=== PATIENT | female | born 1975 | race Caucasian/White ===

== ENCOUNTER 2017-01-30 02:30 | Emergency (ER) | payer MEDICAID ==
[~2017-01-30] VITALS: Ht 152.4 cm; Wt 65.0 kg
[2017-01-30 02:43] VITALS: Ht 152.4 cm; Wt 65.0 kg
[2017-01-30 03:28] LABS: BASOPHILS % 0.5 % (0.0-2.0); EOSINOPHILS # 0.2 10^3/ul (0.0-0.5); EOSINOPHILS % 1.9 % (0.0-7.0); HEMATOCRIT 38.6 % (37.0-47.0); HEMOGLOBIN 13.4 g/dl (12.0-16.0); LYMPHOCYTES # 1.8 10^3/ul (0.8-2.9); LYMPHOCYTES % 22.3 % (15.0-51.0); MEAN CORPUSCULAR HEMOGLOBIN 30.5 pg (29.0-33.0); MEAN CORPUSCULAR HGB CONC 34.7 g/dl (32.0-37.0); MEAN CORPUSCULAR VOLUME 87.7 fl (82.0-101.0); MONOCYTE # 0.5 10^3/ul (0.3-0.9); MONOCYTES % 6.6 % (0.0-11.0); NEUTROPHIL # 5.6 10^3/ul (1.6-7.5); NEUTROPHILS % 68.5 % (39.0-77.0); PLATELET COUNT 255 10^3/UL (140-415); RED CELL DISTRIBUTION WIDTH 12.4 % (11.5-14.5); WHITE BLOOD COUNT 8.2 10^3/ul (4.8-10.8)
--- NOTE | 2017-01-30 03:39 | RADRPT ---
PROCEDURE: CHEST - 1 VIEW CLINICAL INDICATION: 41-year-old female with chest pain. TECHNIQUE: A single frontal AP portable view of the chest was performed. The images were reviewed on a PACS workstation. COMPARISON: None. FINDINGS: The cardiomediastinal silhouette has a normal appearance. There is no evidence for an infiltrate. There is no evidence for congestive heart failure. There is no evidence for pneumothorax. The osseou s structures are intact. IMPRESSION: No evidence for active cardiopulmonary disease. .Luis Vargas MD, MD Date Time Electronically viewed and signed by .Luis Vargas MD, on 01/30/2017 03:39 .M/
[2017-01-30 03:47] LABS: ANION GAP 15 (8-16); BLOOD UREA NITROGEN 14 mg/dl (7-20); CARBON DIOXIDE 22 mmol/L (21-31); CHLORIDE 107 mmol/L (97-110); CREATININE 0.59 mg/dl (0.44-1.00); GLUCOSE 110 mg/dl (70-220); SODIUM 140 mmol/L (135-144)
[2017-01-30 04:01] LABS: TROPONIN-I < 0.012 ng/ml (0.00-0.12)
[2017-01-30] MEDS ORDERED: LOPE2CAP PO (04:23)
[2017-01-30] MEDS ORDERED: LORA-441 PO (04:24)
[2017-01-30 05:05] VITALS: BP 129/84; PULSE 87; RESP 18; TEMP 99
--- NOTE | 2017-01-30 05:10 | ERD ---
ER Documentation Chief Complaint Date/Time DATE: 01/30/17 TIME: 05:07 Chief Complaint bib self, cc: anxious since yesterday, and had diarrhea x 3, HPI This is a 41-year-old female presents to the ER with multiple complaints. Patient states that yesterday around 1:30 PM she began to experience palpitations that have been intermittent. Around 3:30 PM patient had 3 episodes of nonbloody, watery diarrhea. Patient however denies any abdominal pain. She does admit to nausea however denies vomiting. Around 5 PM patient had an episode of chest pain which lasted about 2 minutes and went away. She denies any shortness of breath. Patient is also complaining of being fatigued. Patient has had a cough and a sinus infection over the last week. There is no history of early onset of heart attacks in her family, she does not have diabetes or hypertension and does not smoke. She states that she is constantly anxious, however does not believe this is anxiety. ROS 12 point review of systems was done, all negative except per HPI. Medications Home Meds Active Scripts Lorazepam* (Ativan*) 0.5 Mg Tablet, 0.5 MG PO Q8, #10 TAB Prov:COLTON PIERRE 01/30/17 Loperamide Hcl* (Imodium*) 2 Mg Capsule, 2 MG PO .AFTER EA LOOSE BM Y for DIARRHEA, #10 TAB Prov:COLTON PIERRE 01/30/17 Allergies Allergies: Coded Allergies: erythromycin base (Verified Allergy, Unknown, 01/30/17) PMhx/Soc Medical and Surgical Hx: pt denies Medical Hx Hx Miscellaneous Medical Probl: Yes (anxious since yesterday ) Hx Alcohol Use: No Hx Substance Use: No Hx Tobacco Use: No Smoking Status: Never smoker Physical Exam Vitals Vital Signs Date Time Temp Pulse Resp B/P Pulse Ox O2 Delivery O2 Flow Rate FiO2 01/30/17 02:43 98.9 81 19 123/81 100 Physical Exam GENERAL: The patient is well developed and appropriate for usual state of health , in no apparent distress. HEENT: Atraumatic. Conjunctivae are pink. Pupils equal, round, and reactive to light. Extraocular muscles are grossly intact. Bilateral tympanic membranes are clear with no evidence of erythema, effusion or dulling of the light reflex. The oropharynx is clear with no erythema or exudates. NECK: C-spine is soft and supple. There is no cervical lymphadenopathy. CHEST: Clear to auscultation bilaterally. There are no rales, wheezes or rhonchi. HEART: Regular rate and rhythm. No murmurs, clicks, rubs or gallops. ABDOMEN: Soft, nontender and nondistended. Good bowel sounds. No rebound or guarding. No gross peritonitis. No gross organomegaly or masses. No Villanueva sign or McBurney point tenderness. No pulsatile masses. BACK: No midline or flank tenderness. EXTREMITIES: Equal pulses bilaterally. There is no peripheral clubbing, cyanosis or edema. No focal swelling or erythema. Full range of motion. Grossly neurovascularly intact. NEURO: Alert and oriented. Cranial nerves II through XII are intact. Motor strength in all 4 extremities with 5/5 strength. Sensation grossly intact. Normal speech and gait. SKIN: There is no apparent rash or petechia. The skin is warm and dry. Result Diagram: 01/30/17 0320 01/30/17 0320 Results 24 hrs Laboratory Tests Test 01/30/17 03:20 White Blood Count 8.210^3/ul Red Blood Count 4.4010^6/ul Hemoglobin 13.4g/dl Hematocrit 38.6% Mean Corpuscular Volume 87.7fl Mean Corpuscular Hemoglobin 30.5pg Mean Corpuscular Hemoglobin Concent 34.7g/dl Red Cell Distribution Width 12.4% Platelet Count 92913^3/UL Mean Platelet Volume 10.0fl Neutrophils % 68.5% Lymphocytes % 22.3% Monocytes % 6.6% Eosinophils % 1.9% Basophils % 0.5% Nucleated Red Blood Cells % 0.0/100WBC Neutrophils # 5.610^3/ul Lymphocytes # 1.810^3/ul Monocytes # 0.510^3/ul Eosinophils # 0.210^3/ul Basophils # 0.010^3/ul Nucleated Red Blood Cells # 0.010^3/ul Sodium Level 140mmol/L Potassium Level 4.0mmol/L Chloride Level 107mmol/L Carbon Dioxide Level 22mmol/L Anion Gap 15 Blood Urea Nitrogen 14mg/dl Creatinine 0.59mg/dl Glucose Level 110mg/dl Calcium Level 9.0mg/dl Troponin I < 0.012ng/ml Thyroid Stimulating Hormone (TSH) 1.380MIU/L Procedures/MDM Differential diagnosis includes but is not limited to; STEMI, dissection, pneumothorax, PE, esophageal rupture, tamponade, pneumonia, pericarditis, GERD, musculoskeletal, endocarditis, anxiety. At this time etiology of patient's palpitations is unknown, however there is no evidence of acute cardiac etiology. EKG was taken [address] elevation no T-wave inversion this EKG was signed by Dr. Jean-Baptiste. Patient did not have any evidence of hyperthyroidism, electrolyte abnormality or infection. For pulmonary embolism is low, patient does not have any PERC criteria. May be suffering from anxiety , she will be sent home with Lorazepam. She will also be given medication for her diarrhea. At this time there is no evidence of dehydration she is able to tolerate p.o. fluids. Advised patient to see a ball machine operator, and gave her information for Dr. Vasquez. She should also follow-up with her primary care doctor within 1-2 days or return to ER sooner if symptoms worsen. My medical decision making was shared with the patient she understands and agrees with plan. Departure Diagnosis: Primary Impression: Palpitations Condition: Stable Patient Instructions: Palpitations Referrals: JASON VASQUEZ Additional Instructions: Call your primary care doctor TOMORROW for an appointment during the next 1-2 days.See the doctor sooner or return here if your condition worsens before your appointment time. COLTON PIERRE Jan 30, 2017 05:10
== END 2017-01-30 05:05 | disposition home or self-care (01) ==
LOC: FTE 02:30
DX: R00.2 Palpitations (principal)
CPT/HCPCS: 36415; 71010; 80048; 84443; 84484; 85025; 93005; Z7502

== ENCOUNTER 2018-01-05 15:09 | Emergency (ER) | END 2018-01-05 17:34 | disposition home or self-care (01) ==

== ENCOUNTER 2018-06-21 07:57 | Emergency (ER) | payer MEDICAID ==
[~2018-06-21] VITALS: Ht 167.6 cm; Wt 64.1 kg
[~2018-06-21 07:57] MED LIST: IBUP-1542 PO; LOPE2CAP PO; LORA-441 PO; TRAM50TA2 PO
[2018-06-21 08:01] VITALS: BP 127/87; PULSE 89; RESP 20; Ht 167.6 cm; Wt 64.1 kg
[2018-06-21] MEDS ORDERED: IBUPROFEN 800 MG TAB PO ONE (08:30)
[2018-06-21] MEDS ORDERED: HYDR-4011 PO (09:51)
[2018-06-21] MEDS ORDERED: NAPR-985 PO (09:51)
[2018-06-21] MEDS ORDERED: MED4DP PO (09:51)
--- NOTE | 2018-06-21 11:13 | ERD ---
ER Documentation Chief Complaint Chief Complaint Complains of right hand pain x 2 days HPI 42-year-old female presenting with pain of right hand. She denies any traumatic injuries and had some swelling noted to the dorsal aspect of her right hand. She is right-hand dominant. She also has some pain extending from her neck down her arm and describes it as a stabbing burning type pain. Took Advil last night but no medication days. Denies any fevers. Medical history denies. Allergy to erythromycin. Surgical history to the right ovary. Social history denies ROS All systems reviewed and are negative except as per history of present illness. Medications Home Meds Active Scripts Naproxen* (Naprosyn*) 500 Mg Tablet, 500 MG PO BID PRN for PAIN AND/OR INFLAMMATION, #30 TAB Prov:MYKE AGUILAR PA-C 06/21/18 Hydrocodone/Acetaminophen ([place] 5-325 Tablet) 1 Each Tablet, 1 TAB PO Q6H PRN for PAIN, #7 TAB Prov:MYKE AGUILAR PA-C 06/21/18 Methylprednisolone* (Medrol* DOSE PACK) 4 Mg/Dose-Pack Tab.ds.pk, 4 MG PO . DIRECTED, #1 PACKET Prov:MYKE AGUILAR PA-C 06/21/18 Tramadol HCl (Tramadol HCl) 50 Mg Tablet, 50 MG PO Q4 PRN for PAIN, #20 TAB Prov:COLTON PIERRE 01/05/18 Ibuprofen* (Motrin*) 600 Mg Tab, 600 MG PO Q6, #30 TAB Prov:COLTON PIERRE 01/05/18 Lorazepam* (Ativan*) 0.5 Mg Tablet, 0.5 MG PO Q8, #10 TAB Prov:COLTON PIERRE 01/30/17 Loperamide Hcl* (Imodium*) 2 Mg Capsule, 2 MG PO .AFTER EA LOOSE BM PRN for DIARRHEA, #10 TAB Prov:COLTON PIERRE 01/30/17 Allergies Allergies: Coded Allergies: erythromycin base (Verified Allergy, Unknown, 01/30/17) PMhx/Soc Hx Miscellaneous Medical Probl: Yes Hx Alcohol Use: No Hx Substance Use: No Hx Tobacco Use: No FmHx Family History: No diabetes, No coronary disease, No other Physical Exam Vitals Vital Signs Date Temp Pulse Resp B/P (MAP) Pulse Ox O2 O2 Flow FiO2 Time Delivery Rate 06/21/18 89 20 127/87 98 08:01 (100) Physical Exam GENERAL: The patient is well-appearing, well-nourished, in no acute distress CHEST: Clear to auscultation bilaterally. There are no rales, wheezes or rhonchi. HEART: Regular rate and rhythm. No murmurs, clicks, rubs or gallops. EXTREMITIES: Bruising noted to the dorsal aspect of the right hand with no obvious deformity or swelling. Able to move all digits without difficulty and strength 5 out of 5. Pulses intact. No swelling noted to the wrist. No deformity. Normal range of motion of the right upper extremity with strength 5 out of 5. NEUROLOGIC: Motor strength in all 4 extremities with 5 out of 5 strength. Sensation grossly intact. SKIN: There is no apparent rash or petechiae. The skin is warm and dry. Results 24 hrs Current Medications Medications Dose Sig/Berta Start Time Status Last (Trade) Ordered Route PRN Stop Time Admin Dose Reason Admin Ibuprofen 800 mg ONCE ONCE 06/21/18 DC 06/21/18 (Motrin) PO 08:30 08:34 06/21/18 08:31 Procedures/MDM DIAGNOSTIC IMAGING REPORT Patient: EBEN RUSSELL : 1975 Age: 42 Sex: F MR #: [id number] DOS: 06/21/18815 Ordering MD: JOHNNIE AGUILAR PA-C Location: [facility] Room/Bed: PROCEDURE: US upper extremity Venous. CLINICAL INDICATION: Right arm edema TECHNIQUE: Multiple sonographic images of the right upper extremity venous system was obtained utilizing grayscale, color-flow, compressive sonography and doppler imaging with augmentation. The images were reviewed on a PACS workstation. COMPARISON: None. FINDINGS: There is normal compressibility and flow within the right internal jugular vein, subclavian vein, axillary vein, brachial, basilic, cephalic , radial and ulnar veins. RPTAT: AA IMPRESSION: No sonographic evidence for venous thrombosis. DIAGNOSTIC IMAGING REPORT Patient: EBEN RUSSELL : 1975 Age: 42 Sex: F MR #: [id number] DOS: 06/21/1816 Ordering MD: JOHNNIE AGUILAR PA-C Location: [facility] Room/Bed: PROCEDURE: Right hand series CLINICAL INDICATION: Pain TECHNIQUE: AP, lateral and oblique images of the right hand were obtained COMPARISON: None FINDINGS: There is no evidence acute fracture dislocation. The bony mineralization is normal. No focal bony blastic or lytic lesions. Soft tissues are unremarkable. IMPRESSION: No evidence acute fracture dislocation or erosions. MDM: 42-year-old female presenting with right arm pain. Patient likely has cervical radiculopathy and will be treated with supportive medications. I have low suspicion for acute fracture dislocation. I have low suspicion for infectious etiology. Patient is discharged stricter precautions and told to follow-up with primary care within 1-2 days for close evaluation. Patient is told symptoms change or worsen to return immediately to the ER. All questions answered at discharge Departure Diagnosis: Primary Impression: Cervical radicular pain Additional Impression: Pain of hand Condition: Stable Patient Instructions: Radiculopathy, Cervical Referrals: [facility] YOU HAVE RECEIVED A MEDICAL SCREENING EXAM AND THE RESULTS INDICATE THAT YOU DO NOT HAVE A CONDITION THAT REQUIRES URGENT TREATMENT IN THE EMERGENCY DEPARTMENT. FURTHER EVALUATION AND TREATMENT OF YOUR CONDITION CAN WAIT UNTIL YOU ARE SEEN IN YOUR DOCTORS OFFICE WITHIN THE NEXT 1-2 DAYS. IT IS YOUR RESPONSIBILITY TO MAKE AN APPOINTMENT FOR FOLOW-UP CARE. IF YOU HAVE A PRIMARY DOCTOR --you should call your primary doctor and schedule an appointment IF YOU DO NOT HAVE A PRIMARY DOCTOR YOU CAN CALL OUR PHYSICIAN REFERRAL HOTLINE AT IF YOU CAN NOT AFFORD TO SEE A PHYSICIAN YOU CAN CHOSE FROM THE FOLLOWING [facility] [id number] [address] [facility] [address] [facility] [address] [facility]. [facility] [address] [facility]. [facility]. [address] Additional Instructions: FOLLOW UP WITH YOUR PRIMARY CARE PHYSICIAN TOMORROW.Return to this facility if you are not improving as expected. MYKE AGUILAR PA-C Jun 21, 2018 11:13
== END 2018-06-21 10:15 | disposition home or self-care (01) ==
LOC: FTE 07:57
DX: M54.12 Radiculopathy, cervical region (principal)
CPT/HCPCS: 73130; 93971; Z7502; Z7610

== ENCOUNTER 2018-07-14 11:42 | Emergency (ER) | payer MEDICAID ==
[~2018-07-14] VITALS: Ht 152.4 cm; Wt 63.4 kg
[~2018-07-14 11:42] MED LIST changes: +HYDR-4011 PO; +MED4DP PO; +NAPR-985 PO
[2018-07-14 11:56] VITALS: Ht 152.4 cm; Wt 63.4 kg
[2018-07-14] MEDS ORDERED: DOCU-144 PO (16:33)
[2018-07-14] MEDS ORDERED: SENN-120 PO (16:33)
--- NOTE | 2018-07-14 16:39 | ERD ---
ER Documentation Chief Complaint Chief Complaint left pelvic pain and vaginal bleeding not HPI This is a 42-year-old female patient who presents with complaint of pain to left lower quadrant. Patient states that she has had lite spotting with BRB since that time. Mild nausea, no vomiting, no diarrhea. Describes pain as sharp stabbing cramping. States on June 28 she had some bleeding went to her primary care doctor who ordered an ultrasound which showed a left ovarian cyst. July 03 she continued to have pain and had another ultrasound that said she had a ruptured cyst. On July 04 she was still having pain and bleeding she had another ultrasound that said that the cyst had resolved. Patient is here because she wants to get an answer for why she is having so much pain if she does not have a cyst. Patient is well-appearing, skin pink warm dry. NAD. It has not had any fevers, denies usual vaginal discharge or odor or itching. Denies sexual activity. Patient history includes endometriosis, removal of right ovary in 2000 due to endometriosis. Patient is Nulliparous. ROS All systems reviewed and are negative except as per history of present illness. Medications Home Meds Active Scripts Docusate Sodium* (Colace*) 100 Mg Capsule, 100 MG PO BID, #30 CAP Prov:ESTRELLA ISAACS NP 07/14/18 Sennosides* (Senna Lax*) 8.6 Mg Tablet, 1 TAB PO BID for constipation for 3 Days, #10 TAB Prov:ESTRELLA ISAACS NP 07/14/18 Naproxen* (Naprosyn*) 500 Mg Tablet, 500 MG PO BID PRN for PAIN AND/OR INFLAMMATION, #30 TAB Prov:MYKE AGUILAR PA-C 06/21/18 Hydrocodone/Acetaminophen ([place] 5-325 Tablet) 1 Each Tablet, 1 TAB PO Q6H PRN for PAIN, #7 TAB Prov:MYKE AGUILAR PA-C 06/21/18 Methylprednisolone* (Medrol* DOSE PACK) 4 Mg/Dose-Pack Tab.ds.pk, 4 MG PO . DIRECTED, #1 PACKET Prov:MYKE AGUILAR PA-C 06/21/18 Tramadol HCl (Tramadol HCl) 50 Mg Tablet, 50 MG PO Q4 PRN for PAIN, #20 TAB Prov:COLTON PIERRE 01/05/18 Ibuprofen* (Motrin*) 600 Mg Tab, 600 MG PO Q6, #30 TAB Prov:COLTON PIERRE 01/05/18 Lorazepam* (Ativan*) 0.5 Mg Tablet, 0.5 MG PO Q8, #10 TAB Prov:COLTON PIERRE 01/30/17 Loperamide Hcl* (Imodium*) 2 Mg Capsule, 2 MG PO .AFTER EA LOOSE BM PRN for DIARRHEA, #10 TAB Prov:COLTON PIERRE 01/30/17 Allergies Allergies: Coded Allergies: erythromycin base (Verified Allergy, Unknown, 01/30/17) PMhx/Soc Medical and Surgical Hx: pt denies Medical Hx History of Surgery: No (right ovary removed) Hx Psychiatric Problems: Yes (anxiety) Hx Miscellaneous Medical Probl: Yes (ovarian cyst) Hx Alcohol Use: No Hx Substance Use: No Hx Tobacco Use: No Smoking Status: Never smoker FmHx Family History: No diabetes, No coronary disease, No other Physical Exam Vitals Vital Signs Date Temp Pulse Resp B/P (MAP) Pulse Ox O2 O2 Flow FiO2 Time Delivery Rate 07/14/18 99.0 81 18 130/80 98 11:56 (97) Physical Exam GENERAL APPEARANCE: Well developed, well nourished, alert and cooperative, and appears to be in no acute distress. HEAD: normocephalic. EYES: PERRL, EOMI. Vision is grossly intact. EARS: External auditory canals and tympanic membranes clear, hearing grossly intact. NOSE: No nasal discharge. THROAT: Oral cavity and pharynx normal. No inflammation, swelling, exudate, or lesions. Teeth and gingiva in good general condition. NECK: Neck supple, non-tender without lymphadenopathy, masses or thyromegaly. CARDIAC: Normal S1 and S2. No S3, S4 or murmurs. Rhythm is regular. There is no peripheral edema, cyanosis or pallor. Extremities are warm and well perfused. Capillary refill is less than 2 seconds. No carotid bruits. LUNGS: Clear to auscultation and percussion without rales, rhonchi, wheezing or diminished breath sounds. ABDOMEN: Positive bowel sounds. Soft, non-distended, tenderness isolated to LL Q. No guarding or rebound. No murmurs MUSCULOSKELETAL: Adequately aligned spine. ROM intact spine and extremities. No joint erythema or tenderness. Normal muscular development. Normal gait. BACK: Examination of the spine reveals normal gait and posture, no spinal deformity, symmetry of spinal muscles, without tenderness, decreased range of motion or muscular spasm. EXTREMITIES: No significant deformity or joint abnormality. No edema. Peripheral pulses intact. No varicosities. NEUROLOGICAL: CN II-XII intact. Strength and sensation symmetric and intact throughout. SKIN: Skin normal color, texture and turgor with no lesions or eruptions PSYCHIATRIC: The mental examination revealed the patient was oriented to person, place, and time. The patient was able to demonstrate good judgment and reason, without hallucinations, abnormal affect or abnormal behaviors during the examination. Patient is not suicidal. Result Diagram: 07/14/18 1459 07/14/18 1459 Results 24 hrs Laboratory Tests Test 07/14/18 14:15 07/14/18 14:50 07/14/18 14:59 Urine Color YELLOW Urine Clarity SLIGHTLY CLOUDY Urine pH 6.0 Urine Specific [place] 1.016 Urine Ketones TRACE mg/dL Urine Nitrite NEGATIVE mg/dL Urine Bilirubin NEGATIVE mg/dL Urine Urobilinogen NEGATIVE mg/dL Urine Leukocyte Esterase TRACE Osman/ul Urine Microscopic RBC 10 /HPF Urine Microscopic WBC 12 /HPF Urine Squamous Epithelial Cells FEW /HPF Urine Hemoglobin 2+ mg/dL Urine Glucose NEGATIVE mg/dL Urine Total Protein NEGATIVE mg/dl Urine Test NEGATIVE POC Beta HCG, Qualitative NEGATIVE White Blood Count 7.6 10^3/ul Red Blood Count 4.76 10^6/ul Hemoglobin 14.4 g/dl Hematocrit 41.9 % Mean Corpuscular Volume 88.0 fl Mean Corpuscular Hemoglobin 30.3 pg Mean Corpuscular 34.4 g/dl Hemoglobin Concent Red Cell Distribution Width 12.2 % Platelet Count 293 10^3/UL Mean Platelet Volume 9.7 fl Immature Granulocytes % 0.400 % Neutrophils % 65.1 % Lymphocytes % 26.5 % Monocytes % 6.1 % Eosinophils % 1.2 % Basophils % 0.7 % Nucleated Red Blood Cells % 0.0 /100WBC Immature Granulocytes # 0.030 10^3/ul Neutrophils # 5.0 10^3/ul Lymphocytes # 2.0 10^3/ul Monocytes # 0.5 10^3/ul Eosinophils # 0.1 10^3/ul Basophils # 0.1 10^3/ul Nucleated Red Blood Cells # 0.0 10^3/ul Sodium Level 143 mmol/L Potassium Level 3.9 mmol/L Chloride Level 104 mmol/L Carbon Dioxide Level 25 mmol/L Anion Gap 14 Blood Urea Nitrogen 13 mg/dl Creatinine 0.53 mg/dl Est Glomerular Filtrat > 60 mL/min Rate mL/min Glucose Level 96 mg/dl Calcium Level 9.5 mg/dl Total Bilirubin 0.4 mg/dl Direct Bilirubin 0.00 mg/dl Indirect Bilirubin 0.4 mg/dl Aspartate Amino 19 IU/L Transf (AST/SGOT) Alanine 18 IU/L Aminotransferase (ALT/SGPT) Alkaline Phosphatase 66 IU/L Total Protein 8.3 g/dl Albumin 4.9 g/dl Globulin 3.40 g/dl Albumin/Globulin Ratio 1.44 Lipase 96 U/L Procedures/MDM This is a 42-year-old female patient who presents with complaint of pain to left lower quadrant. Diagnostics results PROCEDURE: CT abdomen and pelvis without contrast. There is a fecal filled colon.No evidence of bowel obstruction or inflammation. There is no appendicitis. No renal or ureteral calculi with no evidence of hydronephrosis. PROCEDURE: US Pelvis. 2.2 cm round myometrial lesion consistent with a fibroid. Otherwise normal appearance of the uterus and left ovary. Right ovary surgically absent. BLOOD WORK: No leukocytosis, no anemia, electrolyte disturbance, pancreatitis URINE: Negative nitrites, trace leukocytes, + blood however patient states she is still on her PERIOD Patient has been evaluated for issues that could possibly be causing her abdominal pain including ruptured cyst, ovarian torsion, ectopic , mass, diverticulitis, UTI, kidney stone, AAA. Patient states she has been discussing having hysterectomy due to fibroids. Patient believes this may be the cause of her pain and bleeding and is going to follow-up with her skilled laborer. Instructed patient to follow-up with primary care doctor or skilled laborer to reevaluate hematuria. Patient verbalizes appreciation for workup and relieved no life-threatening or serious conditions found. Structured patient on avoiding constipation including increasing hydration, increasing fiber, using senna for 2-3 days followed by docusate. Departure Diagnosis: Primary Impression: Abdominal pain Additional Impression: Constipation Condition: Stable Patient Instructions: Abdominal Pain Comments See discharge instructions from department tab ESTRELLA ISAACS NP Jul 14, 2018 16:39
[2018-07-14 17:09] VITALS: BP 135/73; PULSE 72; RESP 17
== END 2018-07-14 17:10 | disposition home or self-care (01) ==
LOC: FTE 11:42
DX: R10.9 Unspecified abdominal pain (principal); K59.00 Constipation, unspecified
CPT/HCPCS: 36415; 74176; 76830; 76856; 80053; 81001; 81025; 83690; 84703; 85025; Z7502